=== PATIENT | female | born 1955 ===

== ENCOUNTER 2023-04-23 04:34 | Day surgery (SDC) | payer BC ==
[2023-04-21 12:08] VITALS: BMI 24.2
[~2023-04-23 04:34] MED LIST: BUPIVACAINE HCL/PF 0.25% (2.5MG/ML) 10 ML VIAL IJ ONE
[2023-04-23] MEDS ORDERED: LIDOCAINE HCL/PF 2% SDV 5ML VIAL ONE (11:53)
[2023-04-23] MEDS ORDERED: KETOROLAC TROMETHAMINE 30 MG/1 ML VIAL ONE (11:53)
[2023-04-23] MEDS ORDERED: ONDANSETRON 4 MG/2 ML VIAL ONE (11:53)
[2023-04-23] MEDS ORDERED: ceFAZolin SODIUM 1 GM VIAL ONE (11:53)
[2023-04-23] MEDS ORDERED: DEXAMETHASONE SOD PHOSPHATE 4 MG/1 ML VIAL ONE (11:53)
[2023-04-23] MEDS ORDERED: SODIUM CHLORIDE 0.9% P/F 10 ML VIAL IJ ONE (11:53)
[2023-04-23] MEDS ORDERED: PROPOFOL 20 ML ONE ×2 (11:59→12:05)
[2023-04-23] MEDS ORDERED: MIDAZOLAM HCL 2 MG/2 ML SINGLE DOSE VIAL ONE (12:01)
[2023-04-23] MEDS ORDERED: METOPROLOL TARTRATE 5 MG/5 ML VIAL ONE (13:06)
[2023-04-23] MEDS ORDERED: LIDOCAINE HCL 1%, 10 MG/ML (20ML VIAL) ONE (13:27)
[2023-04-23] MEDS ORDERED: BUPIVACAINE HCL/PF 0.25% (2.5MG/ML) 10 ML VIAL ONE (13:27)
[2023-04-23] MEDS ORDERED: ceFAZolin SODIUM 1 GM VIAL IVPB ONE (13:37)
[2023-04-23] MEDS ORDERED: LIDOCAINE HCL 1%, 10 MG/ML (20ML VIAL) INF ONE (13:45)
[2023-04-23] MEDS ORDERED: HYDROmorphone HCl 2 MG/ML VIAL ONE (14:11)
[2023-04-23] MEDS ORDERED: ACETAMINOPHEN INJECTION 100 ML IVPB ONE (14:48)
[2023-04-23] MEDS ORDERED: SEVOFLURANE 250 ML BTL ONE (14:48)
[2023-04-23] MEDS ORDERED: BUPIVACAINE HCL/PF 0.25% (2.5MG/ML) 10 ML VIAL IJ ONE (15:04)
[2023-04-23] MEDS ORDERED: LABETALOL HCL 20 MG/4 ML VIAL ONE (15:06)
[2023-04-23] MEDS ORDERED: ACETAMINOPHEN 325 MG TABLET (FP) PO PRN (15:23)
[2023-04-23] MEDS ORDERED: ONDANSETRON 4 MG/2 ML VIAL IVPUSH PRN (15:23)
[2023-04-23] MEDS ORDERED: oxyCODONE HCL 5 MG TABLET PO PRN (15:23)
[2023-04-23] MEDS ORDERED: LACTATED RINGERS SOLUTION 1,000 ML IV SCH (15:30)
[2023-04-23 17:19] VITALS: RESP 18
[2023-04-23 19:24] VITALS: BP 106/50; PULSE 76; TEMP 97.5
== END 2023-04-23 19:15 | disposition home or self-care (01) ==
LOC: JASU-SURG 04:34
PROVIDERS: ATTEND Podiatrist Foot Surgery
PROC: 0QSQ04Z Reposition Right Toe Phalanx with Internal Fixation Device, Open Approach (ICD-10-PCS; principal; 2023-04-23 12:00)
DX: S92.401A Displaced unspecified fracture of right great toe, initial encounter for closed fracture (principal); Y99.9 Unspecified external cause status
CPT/HCPCS: 76000-TC-FY; 88305-TC; 88311-TC; 94760; C1889; J0131